=== PATIENT | female | born 1960 | race Caucasian/White ===

== ENCOUNTER 2017-01-04 16:52 | Emergency (ER) | payer OTHER ==
[2017-01-04] MEDS ORDERED: NORMAL SALINE 1000 ML 1,000 ML IV ONE (17:53)
--- NOTE | 2017-01-04 17:56 | ER Document Report ---
ED Medical Screen (RME) - General Chief Complaint: Nausea/Vomiting Stated Complaint: NAUSEA, VOMITING Time Seen by Provider: 01/04/17 17:53 Mode of Arrival: Ambulatory Information source: Patient TRAVEL OUTSIDE OF THE [place] IN LAST 30 DAYS: No - HPI Patient complains to provider of: abd pain/vomiting Onset: Other - pt sent by PCP for further evaluation of L-sided abd pain and vomiting for the past several days. - Related Data Allergies/Adverse Reactions: witch ej [Witch Ej] Allergy (Severe, Verified 01/04/17 17:04) rash latex [Latex] Adverse Reaction (Severe, Verified 01/04/17 17:04) Hives wool Allergy (Severe, Uncoded 01/04/17 17:04) Hives Past Medical History - Social History Frequency of alcohol use: None Drug Abuse: None - Past Medical History Cardiac Medical History: Reports: Hx Hypertension - on meds Denies: Hx Coronary Artery Disease, Hx Heart Attack Pulmonary Medical History: Reports: Hx Asthma - emphysema//inhalers, Hx COPD Denies: Hx Bronchitis, Hx Pneumonia Neurological Medical History: Denies: Hx Cerebrovascular Accident, Hx Seizures Renal/ Medical History: Denies: Hx Peritoneal Dialysis GI Medical History: Reports: Hx Hiatal Hernia. Denies: Hx Hepatitis, Hx Ulcer Musculoskeltal Medical History: Denies Hx Arthritis Infectious Medical History: Denies: Hx Hepatitis Past Surgical History: Denies: Hx Mastectomy, Hx Open Heart Surgery, Hx Pacemaker - Immunizations Hx Diphtheria, Pertussis, Tetanus Vaccination: No Physical Exam - Vital signs Vitals: Temp Pulse Resp BP Pulse Ox 98.3 F 104 H 20 133/74 H 94 01/04/17 17:09 01/04/17 17:09 01/04/17 17:09 01/04/17 17:09 01/04/17 17:09 Course - Vital Signs Vital signs: Temp Pulse Resp BP Pulse Ox 98.3 F 104 H 20 133/74 H 94 01/04/17 17:09 01/04/17 17:09 01/04/17 17:09 01/04/17 17:09 01/04/17 17:09
[2017-01-04 18:19] LABS: ABSOLUTE BASOPHILS # (AUTO) 0.2 10^3/uL (0.0-0.2); ABSOLUTE LYMPHOCYTES (AUTO) 2.3 10^3/uL (0.5-4.7); ABSOLUTE NEUT (AUTO) 8.3 10^3/uL (1.7-8.2); BASOPHILS % (AUTO) 1.3 % (0-2); EOSINOPHILS % (AUTO) 0.2 % (0-6); HEMATOCRIT 41.4 % (36.0-47.0); HEMOGLOBIN 13.9 g/dL (12.0-15.5); HGB HCT DIFFERENCE 0.3; LYMPHOCYTES % (AUTO) 19.6 % (13-45); MEAN CORPUSCULAR HEMOGLOBIN 31.1 pg (27.0-33.4); MEAN CORPUSCULAR HGB CONC 33.6 g/dL (32.0-36.0); MEAN CORPUSCULAR VOLUME 93 fl (80-97); MONOCYTES % (AUTO) 8.4 % (3-13); RED BLOOD COUNT 4.47 10^6/uL (3.72-5.28); RED CELL DISTRIBUTION WIDTH 14.2 % (11.5-14.0); SEGMENTED NEUTROPHILS % (AUTO) 70.5 % (42-78); WHITE BLOOD COUNT 11.8 10^3/uL (4.0-10.5)
[2017-01-04 18:32] LABS: AMORPHOUS SEDIMENT,URINE TRACE /HPF; APPEARANCE,URINE CLOUDY; BILIRUBIN,URINE NEGATIVE (NEGATIVE); GLUCOSE, URINE NEGATIVE (NEGATIVE); KETONES,URINE NEGATIVE (NEGATIVE); LEUKOCYTE ESTERASE,URINE SMALL (NEGATIVE); NITRITE,URINE POSITIVE (NEGATIVE); PROTEIN,URINE 100 mg/dL (NEGATIVE); URINE SPECIFIC GRAVITY 1.011
[2017-01-04 18:34] LABS: ALANINE AMINOTRANSFERASE 24 U/L (9-52); ALBUMIN 4.3 g/dL (3.5-5.0); ALKALINE PHOSPHATASE 91 U/L (38-126); ANION GAP 15 (5-19); ASPARTATE AMINO TRANSFERASE 23 U/L (14-36); BILIRUBIN,DIRECT 0.4 mg/dL (0.0-0.4); BILIRUBIN,TOTAL 1.1 mg/dL (0.2-1.3); BLOOD UREA NITROGEN 9 mg/dL (7-20); CALCIUM 8.9 mg/dL (8.4-10.2); CARBON DIOXIDE 29 mmol/L (22-30); CHLORIDE 95 mmol/L (98-107); CREATININE RESULT 0.66 mg/dL (0.52-1.25); GLUCOSE 147 mg/dL (75-110); LIPASE 59.9 U/L (23-300); SODIUM 138.8 mmol/L (137-145); TOTAL PROTEIN 8.3 g/dL (6.3-8.2)
--- NOTE | 2017-01-04 19:34 | ER Document Report ---
ED GI/ - General Chief Complaint: Nausea/Vomiting Stated Complaint: NAUSEA, VOMITING Time Seen by Provider: 01/04/17 17:53 Mode of Arrival: Ambulatory Notes: Patient is a 56-year-old female that comes emergency department for chief complaint of abdominal pain and vomiting for the past 3 days, she states that abdominal pain began in her left lower abdomen earlier today. She denies any fevers or chills, she has only vomited once today, she states her last bowel movement was normal in appearance. She denies any chest pain, dizziness, flank pain. She has had a colonoscopy recently that showed chest polyps. Past medical history including ostomy bag for urine secondary to bladder cancer, cholecystectomy, hypertension, type 2 diabetes, iron deficiency anemia. Patient denies current pain, states she feels hungry. TRAVEL OUTSIDE OF THE [place] IN LAST 30 DAYS: No - Related Data Allergies/Adverse Reactions: witch ej [Witch Ej] Allergy (Severe, Verified 01/04/17 17:04) rash latex [Latex] Adverse Reaction (Severe, Verified 01/04/17 17:04) Hives wool Allergy (Severe, Uncoded 01/04/17 17:04) Hives Past Medical History - General Information source: Patient - Social History Smoking Status: Current Every Day Smoker Frequency of alcohol use: None Drug Abuse: None Lives with: Family Family History: Reviewed & Not Pertinent - Past Medical History Cardiac Medical History: Reports: Hx Hypertension - on meds Denies: Hx Coronary Artery Disease, Hx Heart Attack Pulmonary Medical History: Reports: Hx Asthma - emphysema//inhalers, Hx COPD Denies: Hx Bronchitis, Hx Pneumonia Neurological Medical History: Denies: Hx Cerebrovascular Accident, Hx Seizures Renal/ Medical History: Denies: Hx Peritoneal Dialysis GI Medical History: Reports: Hx Hiatal Hernia. Denies: Hx Hepatitis, Hx Ulcer Musculoskeltal Medical History: Denies Hx Arthritis Infectious Medical History: Denies: Hx Hepatitis Past Surgical History: Reports: Hx Cholecystectomy, Hx Urinary Tract Surgery - bladder surgery. Denies: Hx Mastectomy, Hx Open Heart Surgery, Hx Pacemaker - Immunizations Hx Diphtheria, Pertussis, Tetanus Vaccination: Yes Review of Systems - Review of Systems Constitutional: No symptoms reported EENT: No symptoms reported Cardiovascular: No symptoms reported Respiratory: No symptoms reported Gastrointestinal: See HPI Genitourinary: No symptoms reported Female Genitourinary: No symptoms reported Musculoskeletal: No symptoms reported Skin: No symptoms reported Hematologic/Lymphatic: No symptoms reported Neurological/Psychological: No symptoms reported Physical Exam - Vital signs Vitals: Temp Pulse Resp BP Pulse Ox 98.3 F 104 H 20 133/74 H 94 01/04/17 17:09 01/04/17 17:09 01/04/17 17:09 01/04/17 17:09 01/04/17 17:09 Interpretation: Normal - General General appearance: Appears well In distress: None - Patient is alert, she is well-appearing, she does not appear to be in any distress - HEENT Head: Normocephalic, Atraumatic Eyes: Normal Pupils: PERRL - Respiratory Respiratory status: No respiratory distress Chest status: Nontender Breath sounds: Normal Chest palpation: Normal - Cardiovascular Rhythm: Regular. No: Tachycardia - Patient is not tachycardic on my exam Heart sounds: Normal auscultation, S1 appreciated, S2 appreciated Murmur: No - Abdominal Distension: No distension Bowel sounds: Normal Tenderness: Tender - There is generalized abdominal tenderness which is mild, slightly more tender in LLQ, no guarding, no rigidity. Bladder ostomy bag noted , has yellow urine in it with no obvious hematuria. Hernia under bladder bag is soft and unremarkable. Organomegaly: No organomegaly - Back Back: Normal, Nontender. No: Tender, CVA tenderness - Extremities General upper extremity: Normal inspection, Nontender, Normal strength, Normal temperature General lower extremity: Normal inspection, Nontender, Normal strength, Normal temperature - Neurological Neuro grossly intact: Yes Cognition: Normal Orientation: AAOx4 Bailey Coma Scale Eye Opening: Spontaneous Bailey Coma Scale Verbal: Oriented Bailey Coma Scale Motor: Obeys Commands Marielena Coma Scale Total: 15 Speech: Normal Motor strength normal: LUE, RUE, LLE, RLE Sensory: Normal - Psychological Associated symptoms: Normal affect, Normal mood - Skin Skin Temperature: Warm Skin Moisture: Dry Skin Color: Normal Course - Re-evaluation Re-evalutation: On my examination patient has mild generalized abdominal tenderness except for mild slightly greater tenderness in the left lower abdomen. There is a hernia in the location of the right lower abdomen associated with her urine bag ostomy , however this is not tender, it is not rigid. Patient is actually well- appearing, sitting up, smiling, talkative, asking to eat. There is mild leukocytosis at 11.8 with no bandemia. No fever, tachycardia, or hypotension. Chemistry reviewed and unremarkable. Urinalysis shows positive nitrates, leukocyte esterase, white blood cells, however this was taken from her urine bag ostomy and is therefore nonspecific. A urine culture sent. Scan reviewed, has incidental finding of 2 cm right renal abnormality which is concerning for malignant mass. No acute abnormalities. The mass was not present last February when she had a CAT scan. I reviewed this with patient. Patient is asking to leave, she states she feels much better and she would like to follow-up with her primary care and then with her urologist in the next few days which she already has an appointment planned for. Patient will be covered with Cipro and Flagyl because of left lower quadrant pain, vomiting, and potential urinary tract infection. I gave patient a copy of her CD and report, discussed that this appears to be concerning for malignancy and must not wait because of potential for metastasis. Patient states understanding and agreement , she states she will return if she worsens. - Vital Signs Vital signs: Temp Pulse Resp BP Pulse Ox 99 F 95 20 118/58 L 95 01/04/17 19:49 01/04/17 22:09 01/04/17 22:09 01/04/17 22:09 01/04/17 22:09 - Laboratory Result Diagrams: 01/04/17 18:12 01/04/17 18:12 Laboratory results interpreted by me: 01/04/17 01/04/17 01/04/17 18:12 18:12 18:12 WBC 11.8 H RDW 14.2 H Absolute Neutrophils 8.3 H Chloride 95 L Glucose 147 H Total Protein 8.3 H Urine Protein 100 H Urine Blood SMALL H Urine Nitrite POSITIVE H Urine Urobilinogen 2.0 H Ur Leukocyte Esterase SMALL H Discharge - Discharge Clinical Impression: Abdominal pain Qualifiers: Abdominal location: generalized Qualified Code(s): R10.84 - Generalized abdominal pain Vomiting Qualifiers: Vomiting type: unspecified Vomiting Intractability: non-intractable Nausea presence: with nausea Qualified Code(s): R11.2 - Nausea with vomiting, unspecified Condition: Stable Disposition: HOME, SELF-CARE Additional Instructions: Take the cipro and flagyl given due to possible diverticulitis and possible UTI. We have a urine culture pending. Take the phenergan if needed for nausea. Your CAT scan imaging does show that the hernia which you already were aware of but also shows a new kidney mass which needs a close follow-up. Call your primary care provider tomorrow in regards to this, your urology referral this week is probably appropriate for this. Return to the ED if you worsen in any way including returned or worsening abdominal pain, uncontrolled vomiting, fever, or any other concerning symptoms. Prescriptions: Ciprofloxacin HCl [Cipro 500 mg Tablet] 500 mg PO BID #14 tablet Metronidazole [Flagyl 500 mg Tablet] 500 mg PO TID #21 tablet Promethazine HCl [Phenergan 25 mg Tablet] 1 tab PO Q6H PRN #15 tablet PRN Reason:
--- NOTE | 2017-01-04 19:59 | RADIOLOGY REPORT (SQ) ---
EXAM DESCRIPTION: CT ABD/PELVIS WITH IV ONLY COMPLETED DATE/TIME: 01/04/2017 7:10 pm REASON FOR STUDY: abd pain/vomiting COMPARISON: 09/17/2015 TECHNIQUE: CT scan of the abdomen and pelvis performed using helical scanning technique with dynamic intravenous contrast injection. No oral contrast. Images reviewed with lung, soft tissue, and bone windows. Reconstructed coronal and sagittal MPR images reviewed. Delayed images for evaluation of the urinary system also acquired. All images stored on PACS. All CT scanners at this facility use dose modulation, iterative reconstruction, and/or weight based d osing when appropriate to reduce radiation dose to as low as reasonably achievable (ALARA). [facility]: Dose Right [facility]: CareDose [facility]: Dose Right [facility]: Teradose 4D [facility]: [employer] [facility] CONTRAST TYPE AND DOSE: contrast/concentration: Isovue 370.00 mg/ml; Total Contrast Delivered: 96.0 ml; Total Saline Delivered: 45.0 ml RENAL FUNCTION: GFR > 60. RADIATION DOSE: Up-to-date CT equipment and radiation dose reduction techniques were employed. CTDIv ol: 16.8 - 19.3 mGy. DLP: 1973 mGy-cm.. LIMITATIONS: None. FINDINGS: LOWER CHEST: No significant findings. No nodules or infiltrates. LIVER: Normal size. No masses. No dilated ducts. SPLEEN: Normal size. No focal lesions. PANCREAS: No masses. No significant calcifications. No adjacent inflammation or peripancreatic fluid collections. Pancreatic duct not dilated. GALLBLADDER: Surgically absent. ADRENAL GLANDS: No significant masses or asymmetry. RIGHT KIDNEY AND URETER: New 2.6 cm solid mass in the mid right kidney not seen on the previous CT. No significant calcifications. No hydronephrosis or hydroureter. LEFT KIDNEY AND URETER: No solid masses. No significant calcifications. No hydronephrosis or hydr oureter. AORTA AND VESSELS: No aneurysm. No dissection. Renal arteries, SMA, celiac without stenosis. RETROPERITONEUM: No retroperitoneal adenopathy, hemorrhage or masses. BOWEL AND PERITONEAL CAVITY: Right lower quadrant ostomy. Bowel is herniated the ostomy site without obstruction. APPENDIX: Not visualized. PELVIS: Status post cystectomy. ABDOMINAL WALL: Ostomy. Herniated 9 obstructive bowel BONES: No significant or acute findings. OTHER: No other significant finding. IMPRESSION: Status post cystectomy with right lower quadrant ostomy. Contains nonobstructed bowel. New 2.6 cm solid mass in the right kidney. Suspicious for primary or metastatic lesion. TECHNICAL DOCUMENTATION: JOB ID: [id number] Quality ID # [id number]: Final reports with documentation of one or more dose reduction techniques (e.g., Au tomated exposure control, adjustment of the mA and/or kV according to patient size, use of iterative reconstruction technique) 2010 [employer]- All Rights Reserved
[2017-01-04] MEDS ORDERED: ONDANSETRON ODT 4 MG TAB (6 TAB/DSPK) PO PRN (20:10)
[2017-01-04] MEDS ORDERED: CIPROFLOXACIN HCL 500 MG TABLET PO ONE (20:10)
[2017-01-04] MEDS ORDERED: METRONIDAZOLE 500 MG TABLET PO ONE (20:10)
[2017-01-04] MEDS ORDERED: ONDANSETRON 4 MG TAB.RAPDIS PO ONE (21:11)
[2017-01-04 22:10] VITALS: BP 118/58
== END 2017-01-04 22:08 | disposition home or self-care (01) ==
LOC: ER 16:52
DX: R11.2 Nausea with vomiting, unspecified (principal); R93.421 Abnormal radiologic findings on diagnostic imaging of right kidney; C67.9 Malignant neoplasm of bladder, unspecified; R10.84 Generalized abdominal pain; D72.829 Elevated white blood cell count, unspecified; K46.9 Unspecified abdominal hernia without obstruction or gangrene; I10 Essential (primary) hypertension; E11.9 Type 2 diabetes mellitus without complications; J44.9 Chronic obstructive pulmonary disease, unspecified; F17.200 Nicotine dependence, unspecified, uncomplicated; Z91.048 Other nonmedicinal substance allergy status; Z93.50 Unspecified cystostomy status
CPT/HCPCS: 99284; 96360; 36415; 83690; 85025; 80053; 81001; 74177; S0119; J7030

== ENCOUNTER → 2018-03-29 | Outpatient (CLI) | payer OTHER ==
--- NOTE | 2018-03-29 14:58 | RADIOLOGY REPORT (SQ) ---
EXAM DESCRIPTION: CT CHEST WITH COMPLETED DATE/TIME: 03/29/2018 2:44 pm REASON FOR STUDY: BLADDER CA (C67.1) C67.1 MALIGNANT NEOPLASM OF DOME OF BLADDER COMPARISON: 09/17/2015 TECHNIQUE: CT scan of the chest performed using helical scanning technique with dynamic intravenous contrast injection. Images reviewed with lung, soft tissue and bone windows. Reconstructed coronal and sagittal MPR and MIP images reviewed. All images stored on PACS. All CT scanners at this facility use dose modulation, iterative reconstruction, and/or weight based d osing when appropriate to reduce radiation dose to as low as reasonably achievable (ALARA). [facility]: Dose Right [facility]: CareDose [facility]: Dose Right [facility]: Teradose 4D [facility]: [employer]Peer ([employer]) CONTRAST TYPE AND DOSE: Not available at time of dictation. Isovue 370- low osmolar. RENAL FUNCTION: Creatinine 1.0 RADIATION DOSE: . LIMITATIONS: None. FINDINGS: LUNGS AND PLEURA: No opacities, nodules, masses. No pneumothorax. No effusions. HILAR AND MEDIASTINAL STRUCTURES: No identified masses or abnormal nodes. HEART AND VASCULAR STRUCTURES: No aneurysm or dissection. No central pulmonary emboli. No pericardi al effusion. HARDWARE: None in the chest. UPPER ABDOMEN: No significant findings. Limited exam. THYROID AND OTHER SOFT TISSUES: No masses. No adenopathy. BONES: No significant finding. OTHER: No other significant finding. IMPRESSION: NORMAL CT OF THE CHEST WITH IV CONTRAST. TECHNICAL DOCUMENTATION: JOB ID: [id number] Quality ID # [id number]: Final reports with documentation of one or more dose reduction techniques (e.g., Au tomated exposure control, adjustment of the mA and/or kV according to patient size, use of iterative reconstruction technique) 2010 [employer]- All Rights Reserved Reading location - IP/workstation name: [email or web address] CORPORATIONPALLAVI
--- NOTE | 2018-03-29 15:02 | RADIOLOGY REPORT (SQ) ---
EXAM DESCRIPTION: CT ABD/PELVIS WITH IV ONLY COMPLETED DATE/TIME: 03/29/2018 2:44 pm REASON FOR STUDY: BLADDER CA (C67.1) C67.1 MALIGNANT NEOPLASM OF DOME OF BLADDER COMPARISON: 01/04/2017 TECHNIQUE: CT scan of the abdomen and pelvis performed using helical scanning technique with dynamic intravenous contrast injection. No oral contrast. Images reviewed with lung, soft tissue, and bone windows. Reconstructed coronal and sagittal MPR images reviewed. Delayed images for evaluation of the urinary system also acquired. All images stored on PACS. All CT scanners at this facility use dose modulation, iterative reconstruction, and/or weight based d osing when appropriate to reduce radiation dose to as low as reasonably achievable (ALARA). [facility]: Dose Right [facility]: CareDose [facility]: Dose Right [facility]: Teradose 4D [facility]: [employer] CONTRAST TYPE AND DOSE: Not available at time of dictation Isovue 370- low osmolar. RENAL FUNCTION: Creatinine 1.0 RADIATION DOSE: CT Rad equipment meets quality standard of care and radiation dose reduction techniq ues were employed. CTDIvol: 9.0 - 14.3 mGy. DLP: 1860 mGy-cm.. LIMITATIONS: None. FINDINGS: LOWER CHEST: No significant findings. No nodules or infiltrates. LIVER: Normal size. No masses. No dilated ducts. SPLEEN: Normal size. No focal lesions. PANCREAS: No masses. No significant calcifications. No adjacent inflammation or peripancreatic fluid collections. Pancreatic duct not dilated. GALLBLADDER: Surgically absent. ADRENAL GLANDS: No significant masses or asymmetry. RIGHT KIDNEY AND URETER: Solid mass this guide in 2017 is no longer identified. There is some cortic al scarring at the site. No significant calcifications. No hydronephrosis or hydroureter. LEFT KIDNEY AND URETER: No solid masses. No significant calcifications. No hydronephrosis or hydr oureter. AORTA AND VESSELS: No aneurysm. No dissection. Renal arteries, SMA, celiac without stenosis. RETROPERITONEUM: No retroperitoneal adenopathy, hemorrhage or masses. BOWEL AND PERITONEAL CAVITY: No masses or inflammatory changes. No free fluid or peritoneal masses. There is an ostomy site in the right lower quadrant. APPENDIX: Not visualized. PELVIS: Prior cystectomy. ABDOMINAL WALL: No masses. No hernias. BONES: No significant or acute findings. OTHER: No other significant finding. IMPRESSION: Postsurgical changes. No evidence of intra-abdominal metastatic disease. The solid david earing right renal mass previously noted is no longer identified. TECHNICAL DOCUMENTATION: JOB ID: [id number] Quality ID # [id number]: Final reports with documentation of one or more dose reduction techniques (e.g., Au tomated exposure control, adjustment of the mA and/or kV according to patient size, use of iterative reconstruction technique) 2010 [employer]- All Rights Reserved Reading location - IP/workstation name: [email or web address]
== END ==
LOC: RAD 14:09
PROVIDERS: ATTEND Internal Medicine Medical Oncology
DX: C67.1 Malignant neoplasm of dome of bladder (principal)
CPT/HCPCS: 71260; 74177; 82565

== ENCOUNTER 2019-02-21 14:49 | Inpatient (IN) | payer OTHER ==
--- NOTE | 2019-02-21 16:17 | ER Document Report ---
ED Medical Screen (RME) - General Chief Complaint: Shortness Of Breath Stated Complaint: SHORT OF BREATH, CHEST PAIN Time Seen by Provider: 02/21/19 15:58 Primary Care Provider: RITA LANG MD [Primary Care Provider] - Follow up as needed Mode of Arrival: Ambulatory Information source: Patient Notes: Patient is a 59-year-old female presenting to the emergency department chief complaint of chest pain shortness of breath. 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 At the time of my evaluation she has severe nausea and states the pain is getting worse. She was given aspirin 325 mg by EMS. She has not had any other medications other than her antihypertensives this morning. She is a smoker. Patient was upgraded from a 3H to an JONI 2 due to ongoing chest pain with sravani rtness of breath and nausea. Charge nurse was made aware. Exam: Heart sounds S1-S2 present with no ectopy noted. Patient is alert, answering all questions appropriately. Lung sounds clear and equal bilaterally. I have greeted and performed a rapid initial assessment of this patient. A comprehensive ED assessment and evaluation of the patient, analysis of test results and completion of the medical decision making process will be conducted by additional ED providers. I have specifically instructed the patient or family members with the patient to immediately return to any nursing staff shou ld anything change in the patient's condition or with their chief complaint. This medical record was dictated with voice recognizing software. There may be grammatical, syntax errors that are unintended. TRAVEL OUTSIDE OF THE [place] IN LAST 30 DAYS: No - Related Data Allergies/Adverse Reactions: witch ej [Witch Ej] Allergy (Severe, Verified 01/04/17 17:04) rash latex [Latex] Adverse Reaction (Severe, Verified 01/04/17 17:04) Hives wool Allergy (Severe, Uncoded 01/04/17 17:04) Hives Past Medical History - Past Medical History Cardiac Medical History: Reports: Hx Hypertension - on meds Denies: Hx Coronary Artery Disease, Hx Heart Attack Pulmonary Medical History: Reports: Hx Asthma - emphysema//inhalers, Hx COPD Denies: Hx Bronchitis, Hx Pneumonia Neurological Medical History: Denies: Hx Cerebrovascular Accident, Hx Seizures Renal/ Medical History: Denies: Hx Peritoneal Dialysis GI Medical History: Reports: Hx Hiatal Hernia. Denies: Hx Hepatitis, Hx Ulcer Musculoskeltal Medical History: Denies Hx Arthritis Infectious Medical History: Denies: Hx Hepatitis Past Surgical History: Reports: Hx Cholecystectomy, Hx Urinary Tract Surgery - bladder surgery. Denies: Hx Mastectomy, Hx Open Heart Surgery, Hx Pacemaker - Immunizations Hx Diphtheria, Pertussis, Tetanus Vaccination: Yes Physical Exam - Vital signs Vitals: Temp Pulse Resp BP Pulse Ox 98.1 F 100 16 100/58 L 92 02/21/19 15:03 02/21/19 15:03 02/21/19 15:03 02/21/19 15:03 02/21/19 15:03 Course - Vital Signs Vital signs: Temp Pulse Resp BP Pulse Ox 98.1 F 100 16 106/57 L 92 02/21/19 15:03 02/21/19 15:03 02/21/19 15:03 02/21/19 15:07 02/21/19 15:03 Doctor's Discharge - Discharge Referrals: RITA LANG MD [Primary Care Provider] - Follow up as needed
[2019-02-21 16:52] LABS: ABSOLUTE EOSINOPHILS # (AUTO) 0.1 10^3/uL (0.0-0.6); ABSOLUTE LYMPHOCYTES (AUTO) 3.4 10^3/uL (0.5-4.7); ABSOLUTE MONOCYTES (AUTO) 0.6 10^3/uL (0.1-1.4); BASOPHILS % (AUTO) 0.2 % (0-2); EOSINOPHILS % (AUTO) 0.5 % (0-6); HEMATOCRIT 35.8 % (36.0-47.0); HEMOGLOBIN 11.9 g/dL (12.0-15.5); LYMPHOCYTES % (AUTO) 26.1 % (13-45); MEAN CORPUSCULAR HEMOGLOBIN 29.3 pg (27.0-33.4); MEAN CORPUSCULAR HGB CONC 33.2 g/dL (32.0-36.0); MEAN CORPUSCULAR VOLUME 88 fl (80-97); MONOCYTES % (AUTO) 4.7 % (3-13); PLATELET COUNT 281 10^3/uL (150-450); RED BLOOD COUNT 4.05 10^6/uL (3.72-5.28); RED CELL DISTRIBUTION WIDTH 14.8 % (11.5-14.0); SEGMENTED NEUTROPHILS % (AUTO) 68.5 % (42-78); TOTAL CELLS COUNTED % (AUTO) 100 %; WHITE BLOOD COUNT 13.1 10^3/uL (4.0-10.5)
[2019-02-21] MEDS ORDERED: NITROGLYCERIN 0.4 MG/TAB 25 TAB/BOTTLE SL PRN ×2 (16:58→18:42)
[2019-02-21] MEDS ORDERED: IPRATROPIUM/ALBUTEROL 0.5-2.5 MG/3 ML AMPUL NEB ONE (16:58)
--- NOTE | 2019-02-21 17:00 | ER Document Report ---
ED General - General Chief Complaint: Shortness Of Breath Stated Complaint: SHORT OF BREATH, CHEST PAIN Time Seen by Provider: 02/21/19 15:58 Primary Care Provider: RITA LANG MD [Primary Care Provider] - Follow up as needed Mode of Arrival: Ambulatory Notes: This is a 59-year-old female with diabetes obesity hypertension and hyperlipidemia who presents with chest pressure and shortness of breath. 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 It worsened on exertion. She went to her doctor's office and they gave her an aspirin and told her to come to the emergency department. Is been present now for 6 hours and is slightly improved laying in bed in the ED but is been constant for 6 hours. No cough no fever. History of COPD/emphysema. Had a cath 10 years ago, that she says was clean. TRAVEL OUTSIDE OF THE [place] IN LAST 30 DAYS: No - Related Data Allergies/Adverse Reactions: witch ej [Witch Ej] Allergy (Severe, Verified 01/04/17 17:04) rash latex [Latex] Adverse Reaction (Severe, Verified 01/04/17 17:04) Hives wool Allergy (Severe, Uncoded 01/04/17 17:04) Hives Past Medical History - General Information source: Patient - Social History Smoking Status: Current Every Day Smoker Chew tobacco use (# tins/day): No Smoking Education Provided: Yes - The patient ED visit today was directly related to their abuse of tobacco. Frequency of alcohol use: None Drug Abuse: None Family History: Reviewed & Not Pertinent Patient has suicidal ideation: No Patient has homicidal ideation: No - Past Medical History Cardiac Medical History: Reports: Hx Hypertension - on meds Denies: Hx Coronary Artery Disease, Hx Heart Attack Pulmonary Medical History: Reports: Hx Asthma - emphysema//inhalers, Hx COPD Denies: Hx Bronchitis, Hx Pneumonia Neurological Medical History: Denies: Hx Cerebrovascular Accident, Hx Seizures Renal/ Medical History: Denies: Hx Peritoneal Dialysis GI Medical History: Reports: Hx Hiatal Hernia. Denies: Hx Hepatitis, Hx Ulcer Musculoskeletal Medical History: Denies Hx Arthritis Infectious Medical History: Denies: Hx Hepatitis Past Surgical History: Reports: Hx Cholecystectomy, Hx Urinary Tract Surgery - bladder surgery. Denies: Hx Mastectomy, Hx Open Heart Surgery, Hx Pacemaker - Immunizations Hx Diphtheria, Pertussis, Tetanus Vaccination: Yes Review of Systems - Review of Systems Notes: REVIEW OF SYSTEMS GEN: Denies fever, chills, weight loss ENT: Denies sore throat, nasal discharge, ear pain EYES: Denies blurry vision, eye pain, discharge CV: Pain RESP: Shortness of breath GI: Denies abdominal pain, nausea, vomiting, diarrhea MSK: Denies joint pain/swelling, edema, SKIN: Denies rash, skin lesions LYMPH: Denies swollen glands/lymph nodes NEURO: Denies headache, focal weakness or numbness, dizziness PSYCH: Denies depression, suicidal or homicidal ideation PHYSICAL EXAMINATION General: Obese. No acute distress, well-nourished Head: Atraumatic, normocephalic ENT: Mouth normal, oropharynx moist, no exudates or tonsillar enlargement Eyes: Conjunctiva normal, pupils equal, lids normal Neck: No JVD, supple, no guarding CVS: Normal rate, regular rhythm, no murmurs Resp: No resp distress, equal and normal breath sounds bilaterally GI: Nondistended, soft, no tenderness to palpation, no rebound or guarding Ext: No deformities, no edema, normal range of motion in upper and lower ext Back: No CVA or midline TTP Skin: No rash, warm Lymphatic: No lymphadeopathy noted Neuro: Awake, alert. Face symmetric. GCS 15. Physical Exam - Vital signs Vitals: Temp Pulse Resp BP Pulse Ox 98.1 F 100 16 100/58 L 92 02/21/19 15:03 02/21/19 15:03 02/21/19 15:03 02/21/19 15:03 02/21/19 15:03 Course - Re-evaluation Re-evalutation: 02/21/19 17:42 Ischemic sounding chest pain with good story. Physical exam shows only wheezing. Multiple resections for ACS. Heart score 5. Chest x-ray negative. EKG is normal/unchanged. Troponin is mildly detectable. Patient will be admitted for stress testing. Discussed with Dr. Du. - Vital Signs Vital signs: Temp Pulse Resp BP Pulse Ox 98.1 F 100 16 110/60 92 02/21/19 15:03 02/21/19 15:03 02/21/19 15:03 02/21/19 16:19 02/21/19 15:03 - Laboratory Result Diagrams: 02/21/19 16:39 02/21/19 16:39 Laboratory results interpreted by me: 02/21/19 02/21/19 16:39 16:39 WBC 13.1 H Hgb 11.9 L Hct 35.8 L RDW 14.8 H Absolute Neuts (auto) 9.0 H Est GFR (MDRD) Non-Af 56 L Glucose 128 H - Diagnostic Test Radiology reviewed: Image reviewed, Reports reviewed - EKG Interpretation by Me EKG shows normal: Sinus rhythm Rate: Normal When compared to previous EKG there are: No significant change - Sickly no changes in ST segments or T waves Discharge - Discharge Clinical Impression: Chest pain, unspecified Qualifiers: Chest pain type: other chest pain Qualified Code(s): R07.89 - Other chest pain; R07.8 - Other chest pain Condition: Good Disposition: ADMITTED OBSERVATION Admitting Provider: Frances (Hospitalist) Unit Admitted: Telemetry Referrals: RITA LANG MD [Primary Care Provider] - Follow up as needed
[2019-02-21 17:13] LABS: ALKALINE PHOSPHATASE 80 U/L (38-126); ANION GAP 9 (5-19); ASPARTATE AMINO TRANSFERASE 16 U/L (14-36); BILIRUBIN,DIRECT 0.1 mg/dL (0.0-0.4); BILIRUBIN,TOTAL 0.5 mg/dL (0.2-1.3); BLOOD UREA NITROGEN 18 mg/dL (7-20); CALCIUM 9.8 mg/dL (8.4-10.2); CARBON DIOXIDE 28 mmol/L (22-30); CHLORIDE 101 mmol/L (98-107); CREATINE KINASE 48 U/L (30-135); GLUCOSE 128 mg/dL (75-110); POTASSIUM 4.8 mmol/L (3.6-5.0); TOTAL PROTEIN 7.8 g/dL (6.3-8.2)
--- NOTE | 2019-02-21 17:54 | RADIOLOGY REPORT (SQ) ---
EXAM DESCRIPTION: CHEST SINGLE VIEW COMPLETED DATE/TIME: 02/21/2019 4:57 pm REASON FOR STUDY: chest pain COMPARISON: 10/02/2009 EXAM PARAMETERS: NUMBER OF VIEWS: One view. TECHNIQUE: Single frontal radiographic view of the chest acquired. RADIATION DOSE: NA LIMITATIONS: None. FINDINGS: LUNGS AND PLEURA: No opacities, masses or pneumothorax. No pleural effusion. MEDIASTINUM AND HILAR STRUCTURES: No masses. Contour normal. HEART AND VASCULAR STRUCTURES: Heart normal in size. Normal vasculature. BONES: No acute findings. HARDWARE: None in the chest. OTHER: No other significant finding. IMPRESSION: NO ACUTE RADIOGRAPHIC FINDING IN THE CHEST. TECHNICAL DOCUMENTATION: JOB ID: [id number] [email or web address]- All Rights Reserved Reading location - IP/workstation name: [email or web address]
[2019-02-21] MEDS ORDERED: NORMAL SALINE 1000 ML 1,000 ML IV PRN (17:57)
[2019-02-21] MEDS ORDERED: LORAZEPAM INJ 2 MG/1 ML VIAL IV PRN (18:41)
[2019-02-21] MEDS ORDERED: DEXTROSE 40% GEL 15 GM TUBE PO PRN ×2 (18:45)
[2019-02-21] MEDS ORDERED: IPRATROPIUM/ALBUTEROL 0.5-2.5 MG/3 ML AMPUL NEB PRN (18:45)
[2019-02-21] MEDS ORDERED: DEXTROSE 50%-WATER 25 GM/50 ML DISP.SYRIN IV PRN ×2 (18:45)
[2019-02-21] MEDS ORDERED: GLUCAGON,HUMAN RECOMB 1 MG INJ IM PRN (18:45)
[2019-02-21] MEDS ORDERED: MORPHINE SULFATE 10 MG/ML INJ IV PRN (18:46)
--- NOTE | 2019-02-21 19:27 | PDOC H&P ---
History of Present Illness Admission Date/PCP: 02/21/19 18:23 RITA LANG MD Patient complains of: chest pain History of Present Illness: HAY OLSEN is a 59 year old female with a past medical history of hypertension, diabetes medius type II, hyperlipidemia, chronic heavy cigarette smoking, history of bladder cancer and COPD not on home O2 who presented with chest pain. 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 She said the pain was a combination of pressure-like and sharp in character, 5/10 intensity. She says that it did temporarily radiated through the intrascapular region. She denies shortness of breath. She was given nitro in the ER and had decent relief from the nitro. Upon encounter, she appears comfortable. She says her chest pain is minimal at 1/10 at the moment. She is saturating at 91 to 92% on room air. She says that she was supposed to be on home oxygen but she refused as she decided to continue smoking. Past Medical History Cardiac Medical History: Reports: Hyperlipidema, Hypertension - on meds Denies: Coronary Artery Disease, Myocardial Infarction Pulmonary Medical History: Reports: Asthma - emphysema//inhalers, Chronic Obst ructive Pulmonary Disease (COPD) Denies: Bronchitis, Pneumonia Neurological Medical History: Denies: Seizures Endocrine Medical History: Reports: Diabetes Mellitus Type 2 GI Medical History: Reports: Hiatal Hernia Denies: Hepatitis Musculoskeltal Medical History: Denies: Arthritis Hematology: Reports: Anemia - hx of Denies: Sickle Cell Disease Past Surgical History Past Surgical History: Reports: Cholecystectomy Denies: Amputation, Mastectomy, Pacemaker Social History Smoking Status: Current Every Day Smoker Family History Family History: Reviewed & Not Pertinent Parental Family History Reviewed: Yes - No premature CAD Children Family History Reviewed: No Sibling(s) Family History Reviewed.: No Medication/Allergy Allergies/Adverse Reactions: witch ej [Witch Ej] Allergy (Severe, Verified 01/04/17 17:04) rash latex [Latex] Adverse Reaction (Severe, Verified 01/04/17 17:04) Hives wool Allergy (Severe, Uncoded 01/04/17 17:04) Hives Review of Systems All systems: reviewed and no additional remarkable complaints except as stated - As mentioned in HPI Physical Exam Vital Signs: Temp Pulse Resp BP Pulse Ox 98.1 F 100 16 110/60 92 02/21/19 15:03 02/21/19 15:03 02/21/19 15:03 02/21/19 16:19 02/21/19 15:03 Intake & Output 02/20/19 02/21/19 02/22/19 06:59 06:59 06:59 Weight 191 lb 12.835 oz General appearance: PRESENT: no acute distress, well-developed, well-nourished Head exam: PRESENT: atraumatic, normocephalic Eye exam: PRESENT: conjunctiva pink, EOMI, PERRLA. ABSENT: scleral icterus Ear exam: PRESENT: normal external ear exam Mouth exam: PRESENT: moist, tongue midline Neck exam: ABSENT: carotid bruit, JVD, lymphadenopathy, thyromegaly Respiratory exam: PRESENT: clear to auscultation eligio. ABSENT: rales, rhonchi, wheezes Cardiovascular exam: PRESENT: RRR. ABSENT: diastolic murmur, rubs, systolic murmur Pulses: PRESENT: normal dorsalis pedis pul GI/Abdominal exam: PRESENT: normal bowel sounds, soft. ABSENT: distended, guarding, mass, organolmegaly, rebound, tenderness Rectal exam: PRESENT: deferred Extremities exam: PRESENT: full ROM. ABSENT: calf tenderness, clubbing, pedal edema Neurological exam: PRESENT: alert, awake, oriented to person, oriented to place, oriented to time, oriented to situation, CN II-XII grossly intact. ABSENT: motor sensory deficit Results Laboratory Results: 02/21/19 16:39 02/21/19 16:39 02/21/19 02/21/19 16:39 16:39 WBC 13.1 H RBC 4.05 Hgb 11.9 L Hct 35.8 L MCV 88 MCH 29.3 MCHC 33.2 RDW 14.8 H Plt Count 281 Seg Neutrophils % 68.5 Sodium 138.3 Potassium 4.8 Chloride 101 Carbon Dioxide 28 Anion Gap 9 BUN 18 Creatinine 1.01 Est GFR ( Amer) > 60 Glucose 128 H Calcium 9.8 Total Bilirubin 0.5 AST 16 Alkaline Phosphatase 80 Total Protein 7.8 Albumin 4.0 02/21/19 02/21/19 16:39 16:39 Creatine Kinase 48 Troponin I 0.094 Impressions: Chest X-Ray 02/21/19 16:15 IMPRESSION: NO ACUTE RADIOGRAPHIC FINDING IN THE CHEST. Assessment and Plan - Diagnosis (1) Atypical chest pain Is this a current diagnosis for this admission?: Yes Plan: Troponin is slightly elevated 0.09. EKG does not show acute changes. We will continue to cycle troponins and EKGs. She did say the pain radiated to the interscapular region earlier. Blood pressures are normal. Will pursue CTA to rule out dissection. On chest palpation, she does have chest wall tenderness on the right anterior chest area. (2) Hypertension Is this a current diagnosis for this admission?: Yes (3) Diabetes mellitus type 2 in obese Is this a current diagnosis for this admission?: Yes (4) Tobacco abuse Is this a current diagnosis for this admission?: Yes (5) History of bladder cancer Is this a current diagnosis for this admission?: Yes
--- NOTE | 2019-02-21 19:28 | ADVANCED CARE ---
- Diagnosis (1) Atypical chest pain Diagnosis Current: Yes (2) Diabetes mellitus type 2 in obese Diagnosis Current: Yes (3) History of bladder cancer Diagnosis Current: Yes (4) Hypertension Diagnosis Current: Yes (5) Tobacco abuse Diagnosis Current: Yes Resuscitation Status: Full Code Discussion: Discussed with patient with daughter on the bedside. She says she is a full code and prefers chest compressions, defibrillation or mechanical ventilation if the need arises. She does express that she does not want to be on long-term ventilation. She says that her daughter, Erin Baptiste is her his surrogate medical decision maker.
--- NOTE | 2019-02-21 19:40 | RADIOLOGY REPORT (SQ) ---
EXAM DESCRIPTION: CTA CHEST COMPLETED DATE/TIME: 02/21/2019 7:24 pm REASON FOR STUDY: r/o dissection, PE COMPARISON: None. TECHNIQUE: CT scan of the chest performed using helical scanning technique with dynamic intravenous contrast injection. Images reviewed with lung, soft tissue and bone windows. Reconstructed coronal and sagittal MPR images reviewed. Additional 3 dimensional post-processing performed to develop Maximal Intensity Projection images (MS P). All images stored on PACS. All CT scanners at this facility use dose modulation, iterative reconstruction, and/or weight based d osing when appropriate to reduce radiation dose to as low as reasonably achievable (ALARA). [facility]: Dose Right [facility]: CareDose [facility]: Dose Right [facility]: Teradose 4D [facility]: Ecelles Carson CONTRAST TYPE AND DOSE: contrast/concentration: Isovue 350.00 mg/ml; Total Contrast Delivered: 63.0 ml; Total Saline Delivered: 72.8 ml Contrast bolus adequate for pulmonary arteries and aorta. RENAL FUNCTION: BUN 10 creatinine 1 RADIATION DOSE: CT Rad equipment meets quality standard of care and radiation dose reduction techniq ues were employed. CTDIvol: 13.2 - 17.4 mGy. DLP: 671 mGy-cm. . LIMITATIONS: None. FINDINGS: LUNGS AND PLEURA: No masses, infiltrates, or pneumothorax. No pleural effusions or pleura l calcifications. AORTA AND GREAT VESSELS: No aneurysm. No dissection. HEART: No pericardial effusion. No significant coronary artery calcifications. PULMONARY ARTERIES: No emboli visualized in the main pulmonary arteries or the segmental branches. HILAR AND MEDIASTINAL STRUCTURES: No identified masses or abnormal nodes. HARDWARE: None in the chest. UPPER ABDOMEN: No significant findings. Limited exam. THYROID AND OTHER SOFT TISSUES: No masses. No adenopathy. BONES: No acute or significant finding. 3D MIPS: Confirm above findings. OTHER: No other significant finding. IMPRESSION: There is no aortic aneurysm or dissection. There is no pulmonary embolus. COMMENT: Quality ID # [id number]: Final reports with documentation of one or more dose reduction techniques (e.g., Automated exposure control, adjustment of the mA and/or kV according to patient size, use of iterative reconstruction technique) TECHNICAL DOCUMENTATION: JOB ID: [id number] [email or web address] All Rights Reserved Reading location - IP/workstation name: [email or web address]
--- NOTE | 2019-02-21 20:55 | EKG REPORT ---
SEVERITY:- BORDERLINE ECG - SINUS TACHYCARDIA BORDERLINE RIGHT AXIS DEVIATION BORDERLINE T ABNORMALITIES, ANT-LAT LEADS : Confirmed by: Valeri Berg MD 21-Feb-2019 20:54:40
[2019-02-21] MEDS ORDERED: HEPARIN SOD (PORCINE) 5,000 UNIT/ML 1 ML VIAL SUBCUT SCH (22:00)
[2019-02-21] MEDS: ATORVASTATIN CALCIUM 40 MG TABLET PO SCH (22:44)
[2019-02-21] MEDS: INSULIN LISPRO 100 UNIT/ML 3 ML VIAL SUBCUT SCH (22:44)
[2019-02-21] MEDS ORDERED: ENOXAPARIN SODIUM INJ 100 MG/1 ML DISP.SYRIN SUBCUT ONE (23:45)
[2019-02-22 05:59] LABS: ANION GAP 9 (5-19); BLOOD UREA NITROGEN 15 mg/dL (7-20); CALCIUM 9.2 mg/dL (8.4-10.2); CARBON DIOXIDE 27 mmol/L (22-30); CHLORIDE 104 mmol/L (98-107); GLUCOSE 128 mg/dL (75-110); POTASSIUM 4.8 mmol/L (3.6-5.0)
[2019-02-22 06:57] LABS: ABSOLUTE EOSINOPHILS # (AUTO) 0.1 10^3/uL (0.0-0.6); ABSOLUTE LYMPHOCYTES (AUTO) 2.1 10^3/uL (0.5-4.7); ABSOLUTE MONOCYTES (AUTO) 0.7 10^3/uL (0.1-1.4); ABSOLUTE NEUT (AUTO) 7.8 10^3/uL (1.7-8.2); BASOPHILS % (AUTO) 0.2 % (0-2); EOSINOPHILS % (AUTO) 0.5 % (0-6); HEMATOCRIT 33.6 % (36.0-47.0); LYMPHOCYTES % (AUTO) 19.4 % (13-45); MEAN CORPUSCULAR HEMOGLOBIN 29.1 pg (27.0-33.4); MEAN CORPUSCULAR HGB CONC 32.7 g/dL (32.0-36.0); MEAN CORPUSCULAR VOLUME 89 fl (80-97); MONOCYTES % (AUTO) 6.3 % (3-13); PLATELET COUNT 227 10^3/uL (150-450); RED BLOOD COUNT 3.78 10^6/uL (3.72-5.28); RED CELL DISTRIBUTION WIDTH 14.9 % (11.5-14.0); SEGMENTED NEUTROPHILS % (AUTO) 73.6 % (42-78); TOTAL CELLS COUNTED % (AUTO) 100 %; WHITE BLOOD COUNT 10.7 10^3/uL (4.0-10.5)
[2019-02-22 08:18] LABS: APPEARANCE,URINE SLIGHTLY-CLOUDY; BILIRUBIN,URINE NEGATIVE (NEGATIVE); COLOR,URINE YELLOW; GLUCOSE, URINE NEGATIVE (NEGATIVE); KETONES,URINE NEGATIVE (NEGATIVE); LEUKOCYTE ESTERASE,URINE MODERATE (NEGATIVE); NITRITE,URINE NEGATIVE (NEGATIVE); PROTEIN,URINE NEGATIVE (NEGATIVE); URINE SPECIFIC GRAVITY 1.013; UROBILINOGEN,URINE NEGATIVE mg/dL (<2.0)
[2019-02-22] MEDS: INSULIN LISPRO 100 UNIT/ML 3 ML VIAL SUBCUT SCH ×4 (09:12→21:26)
[2019-02-22] MEDS: METOPROLOL TARTRATE 25 MG TABLET PO SCH ×2 (09:15→21:25)
--- NOTE | 2019-02-22 09:25 | EKG REPORT ---
SEVERITY:- BORDERLINE ECG - SINUS RHYTHM BORDERLINE T ABNORMALITIES, ANT-LAT LEADS : Confirmed by: Valeri Berg MD 22-Feb-2019 09:24:30
--- NOTE | 2019-02-22 09:25 | EKG REPORT ---
SEVERITY:- BORDERLINE ECG - SINUS RHYTHM BORDERLINE T ABNORMALITIES, ANT-LAT LEADS : Confirmed by: Valeri Berg MD 22-Feb-2019 09:24:34
[2019-02-22] MEDS ORDERED: ENOXAPARIN SODIUM INJ 100 MG/1 ML DISP.SYRIN SUBCUT SCH (10:00)
[2019-02-22] MEDS ORDERED: LIDOCAINE 1% INJ-PF (10 MG/ML) 30 ML SDV ONE (10:50)
[2019-02-22] MEDS ORDERED: HEPARIN SODIUM,PORCINE/NS/PF 2,000 UNIT/1,000 ML RTUINJ IV ONE (10:50)
[2019-02-22] MEDS ORDERED: MIDAZOLAM 2 MG/2 ML INJ ONE (10:57)
[2019-02-22] MEDS ORDERED: FENTANYL CITRATE INJ/PF 100 MCG/2 ML AMPUL ONE (10:57)
[2019-02-22] MEDS ORDERED: NITROGLYCERIN/D5W 50 MG/250 ML RTUINJ IV ONE (11:03)
[2019-02-22] MEDS ORDERED: HEPARIN SOD (PORCINE) 1,000 UNIT/ML 10 ML VIAL ONE (11:06)
--- NOTE | 2019-02-22 12:48 | Operative Report ---
Operative Report DATE OF SURGERY: 02/22/19 Operative Report: Left heart catheterization with selective coronary angiography PREOPERATIVE DIAGNOSIS: Non-ST elevation myocardial infarction POSTOPERATIVE DIAGNOSIS: 1. Normal left-sided filling pressures. 2. Moderate severe luminal irregularities in the LAD. 3. No evidence of hemodynamic significant gradient aortic stenosis OPERATION: Left heart catheterization with selective coronary angiography SURGEON: RENEE POOL ANESTHESIA: Moderate Sedation TISSUE REMOVED OR ALTERED: None COMPLICATIONS: None ESTIMATED BLOOD LOSS: None PROCEDURE: Indication: Very pleasant 59-year-old female who presented as a non-ST elevation myocardial infarction. I was under the impression that she was seen by Dr. Berg in consultation. Cardiac catheterization was subsequently recommended. The patient understands with the full risks benefits and alternatives including but not limited to heart attack stroke surgery emerged surgery contrast nephropathy radiation exposure as well as need for potential emergent transfer without surgery on site they desire to proceed with diagnostic angiography and interventional therapy is indicated. Complications none Consent signed on chart Procedure patient was prepped and draped in usual sterile fashion brought to the cardiac catheterization laboratory in fasting state. Moderate conscious sedation was was performed for 30 minutes. In terms of her pressure medications at my direction and continuous hemodynamic monitoring was utilizing a standard technique the right radial artery was successfully cannulated and after 200 mcg of nitroglycerin 5000 units of heparin were administered and selective coronary geography left heart catheterization was performed with a take catheter. Hemodynamics #1 aortic pressures 108/48 with a mean of 75. LV pressure is 118/0 with an LVEDP of 6. There was no significant transaortic gradient on pullback Selective coronary angiography was performed the following findings 1. Left main is a good caliber bifurcates LAD and left circumflex and is free significant disease. To the LAD is a moderate caliber and terminates at the apex. As a pitchfork configuration. It provides a normal complement of septal perforators. It provides a very small first diagonal branch.. It has moderate to severe luminal irregularities particularly in the mid vessel. 3. The left circumflex is a large caliber vessel. Provides a large bifurcating obtuse marginal branch. There is mild luminal irregularities. In the MONT[place]GRIN cranial projection, it appears to have a high-grade ostial napkin ring stenosis. However in other images which were taken specifically to evaluate this ostial lesion, there does appear to be no evidence of significant obstructive disease at the ostium of the left circumflex. 4. The right coronary moderate in caliber and dominant and provides a smaller PDA and posterolateral system. It is mild to moderate luminal irregularities. Impression #1 normal left-sided filling pressures #2 no evidence of significant aortic stenosis #3 no evidence of significant obstructive coronary artery disease with the exception of moderate severe luminal irregularities within the mid LAD. Plan #1 maximize medical therapy. 2. Case was discussed with Dr. Mahmood who agrees to see the patient in follow-up longitudinal management 3. Case was discussed with the hospital service, Dr. Cedeño
--- NOTE | 2019-02-22 12:49 | PDOC PROGRESS REPORT ---
Subjective Progress Note for:: 02/22/19 Subjective:: HAY OLSEN is a 59 year old female with a past medical history of hypertension, diabetes medius type II, hyperlipidemia, chronic heavy cigarette smoking, history of bladder cancer and COPD not on home O2 who presented with chest pain. Overnight, patient had intermittent chest pain and her troponins also trended up to 0.5. She was started on therapeutic Lovenox. This morning, she is currently chest pain-free and denies any acute complaints. No shortness of breath. Patient will be scheduled for a cardiac cath today. Reason For Visit: CHEST PAIN Physical Exam Vital Signs: Temp Pulse Resp BP Pulse Ox 97.8 F 95 17 102/57 L 93 02/22/19 07:39 02/22/19 07:39 02/22/19 07:39 02/22/19 09:16 02/22/19 07:39 Intake & Output 02/21/19 02/22/19 02/23/19 06:59 06:59 06:59 Intake Total 1780 0 Output Total 1075 Balance 705 0 Weight 191 lb 12.835 oz General appearance: PRESENT: no acute distress, well-developed, well-nourished Head exam: PRESENT: atraumatic, normocephalic Eye exam: PRESENT: conjunctiva pink, EOMI, PERRLA. ABSENT: scleral icterus Ear exam: PRESENT: normal external ear exam Mouth exam: PRESENT: moist, tongue midline Neck exam: ABSENT: carotid bruit, JVD, lymphadenopathy, thyromegaly Respiratory exam: PRESENT: clear to auscultation eligio. ABSENT: rales, rhonchi, wheezes Cardiovascular exam: PRESENT: RRR. ABSENT: diastolic murmur, rubs, systolic murmur Pulses: PRESENT: normal dorsalis pedis pul GI/Abdominal exam: PRESENT: normal bowel sounds, soft. ABSENT: distended, guarding, mass, organolmegaly, rebound, tenderness Rectal exam: PRESENT: deferred Extremities exam: PRESENT: full ROM. ABSENT: calf tenderness, clubbing, pedal edema Neurological exam: PRESENT: alert, awake, oriented to person, oriented to place, oriented to time, oriented to situation, CN II-XII grossly intact. ABSENT: motor sensory deficit Results Laboratory Results: 02/22/19 03:51 02/22/19 03:51 02/21/19 02/21/19 02/21/19 16:39 16:39 16:39 WBC 13.1 H RBC 4.05 Hgb 11.9 L Hct 35.8 L MCV 88 MCH 29.3 MCHC 33.2 RDW 14.8 H Plt Count 281 Seg Neutrophils % 68.5 Sodium 138.3 Potassium 4.8 Chloride 101 Carbon Dioxide 28 Anion Gap 9 BUN 18 Creatinine 1.01 Est GFR ( Amer) > 60 Glucose 128 H Calcium 9.8 Total Bilirubin 0.5 AST 16 Alkaline Phosphatase 80 Total Protein 7.8 Albumin 4.0 TSH 2.28 Urine Color Urine Appearance Urine pH Ur Specific [place] Urine Protein Urine Glucose (UA) Urine Ketones Urine Blood Urine Nitrite Ur Leukocyte Esterase Urine WBC (Auto) Urine RBC (Auto) 02/22/19 02/22/19 02/22/19 03:51 03:51 06:30 WBC 10.7 H RBC 3.78 Hgb 11.0 L Hct 33.6 L MCV 89 MCH 29.1 MCHC 32.7 RDW 14.9 H Plt Count 227 Seg Neutrophils % 73.6 Sodium 140.4 Potassium 4.8 Chloride 104 Carbon Dioxide 27 Anion Gap 9 BUN 15 Creatinine 0.73 Est GFR ( Amer) > 60 Glucose 128 H Calcium 9.2 Total Bilirubin AST Alkaline Phosphatase Total Protein Albumin TSH Urine Color YELLOW Urine Appearance SLIGHTLY-CLOUDY Urine pH 6.0 Ur Specific [place] 1.013 Urine Protein NEGATIVE Urine Glucose (UA) NEGATIVE Urine Ketones NEGATIVE Urine Blood SMALL H Urine Nitrite NEGATIVE Ur Leukocyte Esterase MODERATE H Urine WBC (Auto) 50 Urine RBC (Auto) 4 02/21/19 02/21/19 02/21/19 16:39 16:39 22:23 Creatine Kinase 48 Troponin I 0.094 0.572 02/22/19 03:51 Creatine Kinase Troponin I 0.507 Impressions: Chest X-Ray 02/21/19 16:15 IMPRESSION: NO ACUTE RADIOGRAPHIC FINDING IN THE CHEST. Chest/Abdomen CTA 02/21/19 18:40 IMPRESSION: There is no aortic aneurysm or dissection. There is no pulmonary embolus. Assessment and Plan - Diagnosis (1) NSTEMI (non-ST elevated myocardial infarction) Is this a current diagnosis for this admission?: Yes Plan: Currently on Lovenox 90 mg every 12. Continue aspirin, nitro, and statin. Patient is going for cardiac cath today. (2) Atypical chest pain Is this a current diagnosis for this admission?: Yes Plan: As per #1. (3) Diabetes mellitus type 2 in obese Is this a current diagnosis for this admission?: Yes Plan: Continue sliding scale. (4) History of bladder cancer Is this a current diagnosis for this admission?: Yes Plan: In remission. (5) Hypertension Is this a current diagnosis for this admission?: Yes Plan: Continue losartan and metoprolol. (6) Tobacco abuse Is this a current diagnosis for this admission?: Yes Plan: Counseled on cessation. She is unwilling to try nicotine patches and she said that she has this is in the past and it does not work for her. - Time Time Spent with patient: 25-34 minutes
[2019-02-22] MEDS: ASPIRIN 81 MG TABLET, CHEWABLE PO SCH (13:08)
[2019-02-22] MEDS ORDERED: ACETAMINOPHEN 325 MG TABLET ONE (19:22)
[2019-02-22] MEDS ORDERED: ACETAMINOPHEN 325 MG TABLET PO PRN (19:24)
[2019-02-22 20:29] LABS: APPEARANCE,URINE CLOUDY; BILIRUBIN,URINE NEGATIVE (NEGATIVE); COLOR,URINE YELLOW; GLUCOSE, URINE NEGATIVE (NEGATIVE); KETONES,URINE NEGATIVE (NEGATIVE); LEUKOCYTE ESTERASE,URINE LARGE (NEGATIVE); NITRITE,URINE NEGATIVE (NEGATIVE); PROTEIN,URINE NEGATIVE (NEGATIVE); URINE SPECIFIC GRAVITY 1.015; UROBILINOGEN,URINE NEGATIVE mg/dL (<2.0)
[2019-02-22] MEDS: CEFTRIAXONE 1 GM/D5W RTU 1 GM/50 ML RTUPB IV SCH (21:24)
[2019-02-22] MEDS: ATORVASTATIN CALCIUM 40 MG TABLET PO SCH (21:25)
[2019-02-23] MEDS: LOSARTAN POTASSIUM 25 MG TABLET PO SCH (09:06)
[2019-02-23] MEDS: METOPROLOL TARTRATE 25 MG TABLET PO SCH ×2 (09:06→22:09)
[2019-02-23] MEDS: ASPIRIN 81 MG TABLET, CHEWABLE PO SCH (09:06)
[2019-02-23] MEDS: INSULIN LISPRO 100 UNIT/ML 3 ML VIAL SUBCUT SCH ×4 (09:06→22:04)
--- NOTE | 2019-02-23 11:10 | RADIOLOGY REPORT (SQ) ---
EXAM DESCRIPTION: CT ABD/PELVIS NO ORAL OR IV COMPLETED DATE/TIME: 02/23/2019 10:35 am REASON FOR STUDY: AB PAIN COMPARISON: CT angio chest 02/21/2019 CT chest abdomen pelvis 03/29/2018 CT abdomen pelvis 01/04/2017, 02/19/2016 TECHNIQUE: CT scan of the abdomen and pelvis performed without intravenous or oral contrast. Images reviewed with lung, soft tissue, and bone windows. Reconstructed coronal and sagittal MPR images revi ewed. All images stored on PACS. All CT scanners at this facility use dose modulation, iterative reconstruction, and/or weight based d osing when appropriate to reduce radiation dose to as low as reasonably achievable (ALARA). [facility]: Dose Right [facility]: CareDose [facility]: Dose Right [facility]: Teradose 4D [facility]: Smart [employer], [place] RADIATION DOSE: CT Rad equipment meets quality standard of care and radiation dose reduction techniq ues were employed. CTDIvol: 13.8 - 16.1 mGy. DLP: 1024 mGy-cm.mGy. LIMITATIONS: None. FINDINGS: On today's study, there is moderate to marked right hydronephrosis and hydroureter, new co mpared to the previous studies. Right distal ureteral impingement is likely at the level of the righ t lower quadrant stoma for urinary conduit, which also contains nonobstructed small bowel, ileocecal valve region, cecum, and appendix. This report was called to Dr Daniels. LOWER CHEST: No significant findings. No nodules or infiltrates. NON-CONTRASTED LIVER, SPLEEN, ADRENALS: Evaluation limited by lack of IV contrast. No identified sign ificant masses. PANCREAS: No masses. No peripancreatic inflammatory changes. GALLBLADDER: Surgically absent RIGHT KIDNEY AND URETER: As above no right-sided urinary calculi are seen. No gross right renal ma sses. LEFT KIDNEY AND URETER: No suspicious masses. Assessment limited by lack of IV contrast. No signifi cant calcifications. No hydronephrosis or hydroureter. AORTA AND RETROPERITONEUM: No aneurysm. No retroperitoneal masses or adenopathy. BOWEL AND PERITONEAL CAVITY: No CT evidence of bowel obstruction or free intraperitoneal air or fluid . 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 APPENDIX: Normal. PELVIS, BLADDER, AND ABDOMINAL WALL:Post hysterectomy. Post cystectomy. No pelvic masses or adenopa thy BONES: No significant findings. OTHER: No other significant finding. IMPRESSION: New no moderate to marked right hydronephrosis and hydroureter down to the level of the right lower quadrant stoma. Likely impinged upon by stomal hernia contents. Findings discussed with attending physician. COMMENT: Quality ID # [id number]: Final reports with documentation of one or more dose reduction techniques (e.g., Automated exposure control, adjustment of the mA and/or kV according to patient size, use of iterative reconstruction technique) TECHNICAL DOCUMENTATION: JOB ID: [id number] [employer]- All Rights Reserved Reading location - IP/workstation name: [email or web address]
[2019-02-23] MEDS: ENOXAPARIN SODIUM INJ 40 MG/0.4 ML DISP.SYRIN SUBCUT SCH (12:45)
--- NOTE | 2019-02-23 15:18 | PDOC PROGRESS REPORT ---
Subjective Progress Note for:: 02/23/19 Subjective:: HAY OLSEN is a 59 year old female with a past medical history of hypertension, diabetes medius type II, hyperlipidemia, chronic heavy cigarette smoking, history of bladder cancer and COPD not on home O2 who presented with chest pain. 02/22: Overnight, patient had intermittent chest pain and her troponins also trended up to 0.5. She was started on therapeutic Lovenox. This morning, she is currently chest pain-free and denies any acute complaints. No shortness of breath. Patient will be scheduled for a cardiac cath today. 02/23: Under went cardiac cath yesterday which was uneventful. Nonobstructive CAD. Her chest pain has resolved. No shortness of breath. She did have a low- grade temperature yesterday afternoon. She does complain of some lower abdominal discomfort this morning. She says the urine coming from her urostomy is malodorous. CT of the abdomen pelvis was pursued and revealed significant right-sided hydronephrosis likely from impingement by a stomal hernia. Will discuss with her urologist at [facility] for further recommendations. Reason For Visit: CHEST PAIN Physical Exam Vital Signs: Temp Pulse Resp BP Pulse Ox 98.3 F 92 18 108/61 95 02/23/19 11:27 02/23/19 13:38 02/23/19 13:00 02/23/19 11:27 02/23/19 13:00 Intake & Output 02/22/19 02/23/19 02/24/19 06:59 06:59 06:59 Intake Total 1780 930 120 Output Total 1075 875 Balance 705 55 120 Weight 191 lb 12.835 oz 196 lb 3.382 oz General appearance: PRESENT: no acute distress, well-developed, well-nourished Head exam: PRESENT: atraumatic, normocephalic Eye exam: PRESENT: conjunctiva pink, EOMI, PERRLA. ABSENT: scleral icterus Ear exam: PRESENT: normal external ear exam Mouth exam: PRESENT: moist, tongue midline Neck exam: ABSENT: carotid bruit, JVD, lymphadenopathy, thyromegaly Respiratory exam: PRESENT: clear to auscultation eligio. ABSENT: rales, rhonchi, wheezes Cardiovascular exam: PRESENT: RRR. ABSENT: diastolic murmur, rubs, systolic murmur Pulses: PRESENT: normal dorsalis pedis pul GI/Abdominal exam: PRESENT: normal bowel sounds, soft. ABSENT: distended, guarding, mass, organolmegaly, rebound, tenderness Rectal exam: PRESENT: deferred Neurological exam: PRESENT: alert, awake, oriented to person, oriented to place, oriented to time, oriented to situation, CN II-XII grossly intact. ABSENT: motor sensory deficit Results Laboratory Results: 02/22/19 03:51 02/22/19 03:51 02/22/19 02/22/19 20:00 20:10 Lactic Acid 1.6 Urine Color YELLOW Urine Appearance CLOUDY Urine pH 6.0 Ur Specific [place] 1.015 Urine Protein NEGATIVE Urine Glucose (UA) NEGATIVE Urine Ketones NEGATIVE Urine Blood SMALL H Urine Nitrite NEGATIVE Ur Leukocyte Esterase LARGE H Urine WBC (Auto) 134 Urine RBC (Auto) 7 02/21/19 02/21/19 02/21/19 16:39 16:39 22:23 Creatine Kinase 48 Troponin I 0.094 0.572 02/22/19 03:51 Creatine Kinase Troponin I 0.507 Impressions: Chest X-Ray 02/21/19 16:15 IMPRESSION: NO ACUTE RADIOGRAPHIC FINDING IN THE CHEST. Chest/Abdomen CTA 02/21/19 18:40 IMPRESSION: There is no aortic aneurysm or dissection. There is no pulmonary embolus. Abdomen/Pelvis CT 02/23/19 00:00 IMPRESSION: New no moderate to marked right hydronephrosis and hydroureter down to the level of the right lower quadrant stoma. Likely impinged upon by stomal hernia contents. Findings discussed with attending physician. Assessment and Plan - Diagnosis (1) NSTEMI (non-ST elevated myocardial infarction) Is this a current diagnosis for this admission?: Yes Plan: 02/22: Currently on Lovenox 90 mg every 12. Continue aspirin, nitro, and statin. Patient is going for cardiac cath today. 02/23:. S/P cardiac cath showed nonobstructive [id number] CAD. Recommendation is to optimize medical therapy. Will switch Lovenox to prophylactic dosing today. (2) Hydronephrosis Is this a current diagnosis for this admission?: Yes Plan: CT of the abdomen pelvis was pursued and revealed significant right-sided hydronephrosis likely from impingement by a stomal hernia. Will discuss with her urologist at [facility] for further recommendations. (3) Atypical chest pain Is this a current diagnosis for this admission?: Yes Plan: As per #1. Resolved. (4) Diabetes mellitus type 2 in obese Is this a current diagnosis for this admission?: Yes Plan: Continue sliding scale. (5) History of bladder cancer Is this a current diagnosis for this admission?: Yes Plan: In remission. (6) Hypertension Is this a current diagnosis for this admission?: Yes Plan: Continue losartan and metoprolol. (7) Tobacco abuse Is this a current diagnosis for this admission?: Yes Plan: Counseled on cessation. She is unwilling to try nicotine patches and she said that she has this is in the past and it does not work for her. (8) Complicated UTI (urinary tract infection) Is this a current diagnosis for this admission?: Yes Plan: Started on Rocephin. Urine culture pending.
[2019-02-23 16:02] LABS: ANION GAP 11 (5-19); BLOOD UREA NITROGEN 18 mg/dL (7-20); CALCIUM 8.8 mg/dL (8.4-10.2); CARBON DIOXIDE 30 mmol/L (22-30); CHLORIDE 97 mmol/L (98-107); GLUCOSE 113 mg/dL (75-110); POTASSIUM 4.4 mmol/L (3.6-5.0)
[2019-02-23] MEDS ORDERED: ENOXAPARIN SODIUM INJ 100 MG/1 ML DISP.SYRIN SUBCUT SCH (22:00)
[2019-02-23] MEDS: ATORVASTATIN CALCIUM 40 MG TABLET PO SCH (22:09)
[2019-02-23] MEDS: CEFTRIAXONE 1 GM/D5W RTU 1 GM/50 ML RTUPB IV SCH (22:22)
[2019-02-24 06:30] LABS: HEMATOCRIT 30.4 % (36.0-47.0); MEAN CORPUSCULAR HEMOGLOBIN 29.2 pg (27.0-33.4); MEAN CORPUSCULAR VOLUME 88 fl (80-97); PLATELET COUNT 214 10^3/uL (150-450); RED BLOOD COUNT 3.44 10^6/uL (3.72-5.28); RED CELL DISTRIBUTION WIDTH 14.7 % (11.5-14.0); WHITE BLOOD COUNT 11.1 10^3/uL (4.0-10.5)
[2019-02-24] MEDS: INSULIN LISPRO 100 UNIT/ML 3 ML VIAL SUBCUT SCH ×4 (08:02→22:29)
[2019-02-24] MEDS: LOSARTAN POTASSIUM 25 MG TABLET PO SCH (10:14)
[2019-02-24] MEDS: ASPIRIN 81 MG TABLET, CHEWABLE PO SCH (10:17)
[2019-02-24] MEDS: METOPROLOL TARTRATE 25 MG TABLET PO SCH ×2 (10:17→22:30)
[2019-02-24] MEDS: ENOXAPARIN SODIUM INJ 40 MG/0.4 ML DISP.SYRIN SUBCUT SCH (10:20)
[2019-02-24 11:32] LABS: ABSOLUTE BASOPHILS # (AUTO) 0.1 10^3/uL (0.0-0.2); ABSOLUTE EOSINOPHILS # (AUTO) 0.1 10^3/uL (0.0-0.6); ABSOLUTE MONOCYTES (AUTO) 0.7 10^3/uL (0.1-1.4); ABSOLUTE NEUT (AUTO) 6.8 10^3/uL (1.7-8.2); BASOPHILS % (AUTO) 1.1 % (0-2); EOSINOPHILS % (AUTO) 0.7 % (0-6); HEMATOCRIT 30.6 % (36.0-47.0); HEMOGLOBIN 10.2 g/dL (12.0-15.5); LYMPHOCYTES % (AUTO) 20.9 % (13-45); MEAN CORPUSCULAR HEMOGLOBIN 29.4 pg (27.0-33.4); MEAN CORPUSCULAR HGB CONC 33.4 g/dL (32.0-36.0); MEAN CORPUSCULAR VOLUME 88 fl (80-97); MONOCYTES % (AUTO) 7.4 % (3-13); PLATELET COUNT 223 10^3/uL (150-450); RED BLOOD COUNT 3.48 10^6/uL (3.72-5.28); RED CELL DISTRIBUTION WIDTH 14.6 % (11.5-14.0); SEGMENTED NEUTROPHILS % (AUTO) 69.9 % (42-78); TOTAL CELLS COUNTED % (AUTO) 100 %; WHITE BLOOD COUNT 9.7 10^3/uL (4.0-10.5)
[2019-02-24 11:46] LABS: ANION GAP 9 (5-19); BLOOD UREA NITROGEN 16 mg/dL (7-20); CARBON DIOXIDE 28 mmol/L (22-30); CHLORIDE 98 mmol/L (98-107); GLUCOSE 158 mg/dL (75-110); POTASSIUM 4.2 mmol/L (3.6-5.0)
--- NOTE | 2019-02-24 16:47 | PDOC PROGRESS REPORT ---
Subjective Progress Note for:: 02/24/19 Subjective:: HAY OLSEN is a 59 year old female with a past medical history of hypertension, diabetes medius type II, hyperlipidemia, chronic heavy cigarette smoking, history of bladder cancer and COPD not on home O2 who presented with chest pain. 02/22: Overnight, patient had intermittent chest pain and her troponins also trended up to 0.5. She was started on therapeutic Lovenox. This morning, she is currently chest pain-free and denies any acute complaints. No shortness of breath. Patient will be scheduled for a cardiac cath today. 02/23: She underwent cardiac cath yesterday which was uneventful and showed non- obstructive CAD. Her chest pain has resolved. No shortness of breath. She did have a low-grade temperature yesterday afternoon. She does complain of some lower abdominal discomfort this morning. She says the urine coming from her urostomy is malodorous. CT of the abdomen pelvis was pursued and revealed significant right-sided hydronephrosis likely from impingement by a stomal hernia. Will discuss with her urologist at [facility] for further recommendations. 02/24: No acute event overnight. She denies acute complaints. No fever or chills. Urine culture is initially growing at [facility] an GNR. Discussed case in length with [facility] urology, Dr. Brizuela. As obstruction is unilateral and her renal functions are normal and she is not septic, she recommends possible nephrostomy tube placement upon outpatient follow-up with them. Patient is making adequate urine. Reason For Visit: CHEST PAIN, UTI COMPLICATED BY HYDRONEPHROSIS Physical Exam Vital Signs: Temp Pulse Resp BP Pulse Ox 97.9 F 76 16 105/44 L 95 02/24/19 13:00 02/24/19 13:00 02/24/19 13:00 02/24/19 13:00 02/24/19 13:00 Intake & Output 02/23/19 02/24/19 02/25/19 06:59 06:59 06:59 Intake Total 930 620 50 Output Total 875 Balance 55 620 50 Weight 196 lb 3.382 oz 204 lb 2.369 oz General appearance: PRESENT: no acute distress, well-developed, well-nourished Head exam: PRESENT: atraumatic, normocephalic Eye exam: PRESENT: conjunctiva pink, EOMI, PERRLA. ABSENT: scleral icterus Ear exam: PRESENT: normal external ear exam Mouth exam: PRESENT: moist, tongue midline Neck exam: ABSENT: carotid bruit, JVD, lymphadenopathy, thyromegaly Respiratory exam: PRESENT: clear to auscultation eligio. ABSENT: rales, rhonchi, wheezes Cardiovascular exam: PRESENT: RRR. ABSENT: diastolic murmur, rubs, systolic murmur Pulses: PRESENT: normal dorsalis pedis pul GI/Abdominal exam: PRESENT: normal bowel sounds, soft. ABSENT: distended, guarding, mass, organolmegaly, rebound, tenderness Rectal exam: PRESENT: deferred Extremities exam: PRESENT: full ROM. ABSENT: calf tenderness, clubbing, pedal edema Neurological exam: PRESENT: alert, awake, oriented to person, oriented to place, oriented to time, oriented to situation, CN II-XII grossly intact. ABSENT: motor sensory deficit Results Laboratory Results: 02/24/19 10:42 02/24/19 10:42 02/24/19 02/24/19 02/24/19 05:21 10:42 10:42 WBC 11.1 H 9.7 RBC 3.44 L 3.48 L Hgb 10.0 L 10.2 L Hct 30.4 L 30.6 L MCV 88 88 MCH 29.2 29.4 MCHC 33.0 33.4 RDW 14.7 H 14.6 H Plt Count 214 223 Seg Neutrophils % 69.9 Sodium 135.4 L Potassium 4.2 Chloride 98 Carbon Dioxide 28 Anion Gap 9 BUN 16 Creatinine 0.74 Est GFR ( Amer) > 60 Glucose 158 H Calcium 9.0 02/21/19 02/21/19 02/21/19 16:39 16:39 22:23 Creatine Kinase 48 Troponin I 0.094 0.572 02/22/19 03:51 Creatine Kinase Troponin I 0.507 Impressions: Chest X-Ray 02/21/19 16:15 IMPRESSION: NO ACUTE RADIOGRAPHIC FINDING IN THE CHEST. Chest/Abdomen CTA 02/21/19 18:40 IMPRESSION: There is no aortic aneurysm or dissection. There is no pulmonary embolus. Abdomen/Pelvis CT 02/23/19 00:00 IMPRESSION: New no moderate to marked right hydronephrosis and hydroureter down to the level of the right lower quadrant stoma. Likely impinged upon by stomal hernia contents. Findings discussed with attending physician. Assessment and Plan - Diagnosis (1) NSTEMI (non-ST elevated myocardial infarction) Is this a current diagnosis for this admission?: Yes Plan: 02/22: Currently on Lovenox 90 mg every 12. Continue aspirin, nitro, and statin. Patient is going for cardiac cath today. 02/23: S/P cardiac cath showed nonobstructive [id number] CAD. Recommendation is to optimize medical therapy. Will switch Lovenox to prophylactic dosing today. 02/24: Stable. Add Plavix. (2) Hydronephrosis Is this a current diagnosis for this admission?: Yes Plan: 02/23: CT of the abdomen pelvis was pursued and revealed significant right-sided hydronephrosis likely from impingement by a stomal hernia. Will discuss with her urologist at [facility] for further recommendations. 02/24: Discussed case in length with [facility] urology, Dr. Brizuela. As obstruction is unilateral and her renal functions are normal and she is not septic, she recommends possible nephrostomy tube placement upon outpatient follow-up with them. Patient is making adequate urine. (3) Atypical chest pain Is this a current diagnosis for this admission?: Yes Plan: As per #1. Resolved. (4) Diabetes mellitus type 2 in obese Is this a current diagnosis for this admission?: Yes Plan: Continue sliding scale. (5) History of bladder cancer Is this a current diagnosis for this admission?: Yes Plan: In remission. (6) Hypertension Is this a current diagnosis for this admission?: Yes Plan: Continue losartan and metoprolol. 02/24: Switch losartan to low dose lisinopril. (7) Tobacco abuse Is this a current diagnosis for this admission?: Yes Plan: Counseled on cessation. She is unwilling to try nicotine patches and she said that she has this is in the past and it does not work for her. (8) Complicated UTI (urinary tract infection) Is this a current diagnosis for this admission?: Yes Plan: Urine culture is initially growing at [facility] an GNR. Continue Rocephin.
[2019-02-24] MEDS: ATORVASTATIN CALCIUM 40 MG TABLET PO SCH (22:07)
[2019-02-24] MEDS: CEFTRIAXONE 1 GM/D5W RTU 1 GM/50 ML RTUPB IV SCH (22:12)
[2019-02-25] MEDS: INSULIN LISPRO 100 UNIT/ML 3 ML VIAL SUBCUT SCH ×2 (08:18→12:29)
[2019-02-25 08:39] LABS: APPEARANCE,URINE CLEAR; BILIRUBIN,URINE NEGATIVE (NEGATIVE); COLOR,URINE YELLOW; GLUCOSE, URINE NEGATIVE (NEGATIVE); KETONES,URINE NEGATIVE (NEGATIVE); LEUKOCYTE ESTERASE,URINE TRACE (NEGATIVE); NITRITE,URINE NEGATIVE (NEGATIVE); PROTEIN,URINE NEGATIVE (NEGATIVE); UROBILINOGEN,URINE NEGATIVE mg/dL (<2.0)
[2019-02-25] MEDS ORDERED: LISINOPRIL 5 MG TABLET PO SCH (10:00)
[2019-02-25] MEDS: METOPROLOL TARTRATE 25 MG TABLET PO SCH (10:43)
[2019-02-25] MEDS: ASPIRIN 81 MG TABLET, CHEWABLE PO SCH (10:43)
[2019-02-25] MEDS: ENOXAPARIN SODIUM INJ 40 MG/0.4 ML DISP.SYRIN SUBCUT SCH (10:43)
[2019-02-25 14:48] VITALS: BP 117/60
--- NOTE | 2019-02-25 18:37 | PDOC DISCHARGE SUMMARY ---
General - Admit/Disc Date/PCP Admission Date/Primary Care Provider: 02/23/19 17:16 EVAN DAVIS NP Discharge Date: 02/25/19 - Discharge Diagnosis (1) NSTEMI (non-ST elevated myocardial infarction) Is this a current diagnosis for this admission?: Yes (2) Hydronephrosis Is this a current diagnosis for this admission?: Yes (3) Atypical chest pain Is this a current diagnosis for this admission?: Yes (4) Diabetes mellitus type 2 in obese Is this a current diagnosis for this admission?: Yes (5) History of bladder cancer Is this a current diagnosis for this admission?: Yes (6) Hypertension Is this a current diagnosis for this admission?: Yes (7) Tobacco abuse Is this a current diagnosis for this admission?: Yes (8) Complicated UTI (urinary tract infection) Is this a current diagnosis for this admission?: Yes - Additional Information Resuscitation Status: Full Code Discharge Diet: Cardiac, Diabetic Discharge Activity: Activity As Tolerated, Balance Activity w/Rest Prescriptions: Ciprofloxacin HCl [Cipro 500 mg Tablet] 500 mg PO BID 7 Days #14 tablet Atorvastatin Calcium [Lipitor 40 mg Tablet] 40 mg PO QHS #30 tab Metoprolol Tartrate [Lopressor 25 mg Tablet] 12.5 mg PO Q12 #60 tablet Clopidogrel Bisulfate [Plavix 75 mg Tablet] 75 mg PO DAILY #30 tablet Lisinopril [Prinivil 5 mg Tablet] 5 mg PO DAILY #30 tablet Home Medications: Albuterol Sulfate [Proair HFA Inhalation Aerosol 8.5 gm MDI] 1 puff IH ASDIR PRN 02/21/19 Aspirin [Adult Low Dose Aspirin EC] 81 mg PO QHS 02/21/19 Cetirizine HCl [Zyrtec 10 mg Tablet] 10 mg PO DAILY 02/21/19 Cholecalciferol (Vitamin D3) [Vitamin D3 2000 unit Tablet] 2,000 unit PO QHS 02/21/19 Cyanocobalamin (Vitamin B-12) [Vitamin B-12] 1,000 mcg PO DAILY 02/21/19 Dexlansoprazole [Dexilant 60 mg Capsule] 60 mg PO DAILY 02/21/19 Sitagliptin Phos/Metformin HCl [Janumet Xr 100-1,000 mg Tablet] 1 each PO QHS 02/21/19 Atorvastatin Calcium [Lipitor 40 mg Tablet] 40 mg PO QHS #30 tab 02/25/19 Ciprofloxacin HCl [Cipro 500 mg Tablet] 500 mg PO BID 7 Days #14 tablet 02/25/19 Clopidogrel Bisulfate [Plavix 75 mg Tablet] 75 mg PO DAILY #30 tablet 02/25/19 Lisinopril [Prinivil 5 mg Tablet] 5 mg PO DAILY #30 tablet 02/25/19 Metoprolol Tartrate [Lopressor 25 mg Tablet] 12.5 mg PO Q12 #60 tablet 02/25/19 History of Present Illness History of Present Illness: HAY OLSEN is a 59 year old female with a past medical history of hypertension, diabetes medius type II, hyperlipidemia, chronic heavy cigarette smoking, history of bladder cancer and COPD not on home O2 who presented with chest pain. 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 She said the pain was a combination of pressure-like and sharp in character, 5/10 intensity. She says that it did temporarily radiated through the intrascapular region. She denies shortness of breath. She was given nitro in the ER and had decent relief from the nitro. Upon encounter, she appears comfortable. She says her chest pain is minimal at 1/10 at the moment. She is saturating at 91 to 92% on room air. She says that she was supposed to be on home oxygen but she refused as she decided to continue smoking. Hospital Course Hospital Course: HAY OLSEN is a 59 year old female with a past medical history of hypertension, diabetes medius type II, hyperlipidemia, chronic heavy cigarette smoking, history of bladder cancer and COPD not on home O2 who presented with chest pain. Her troponins did trend up she was started on therapeutic Lovenox. Because of multiple CAD risk factors, stress testing was deferred and she eventually underwent cardiac cath which showed nonobstructive [id number] CAD (see cath report). Her chest pain has resolved. She complained of some lower abdominal discomfort this morning. She says the urine coming from her urostomy is malodorous. UA did show UTI. CT of the abdomen pelvis was pursued and revealed significant right-sided hydronephrosis likely from impingement by a stomal hernia. She follows up with [facility] urology for her prior maxine CA. Discussed case in length with [facility] urology, Dr. Brizuela. As obstruction is unilateral and her renal functions are normal and she is not septic, she recommends possible nephrostomy tube placement upon outpatient follow-up with them. Patient is making adequate urine. Plavix was added to her regimen. He will be discharged on beta-perla and TESSIE inhibitors. She will follow-up with [facility] urology next week for possible nephrostomy tube placement. She will be discharged on oral ciprofloxacin for her UTI. Physical Exam Vital Signs: Temp Pulse Resp BP Pulse Ox 98.1 F 82 14 112/66 93 02/25/19 14:14 02/25/19 14:14 02/25/19 14:14 02/25/19 14:14 02/25/19 14:14 Intake & Output 02/24/19 02/25/19 02/26/19 06:59 06:59 06:59 Intake Total 620 850 530 Balance 620 850 530 Weight 204 lb 2.369 oz 208 lb 15.971 oz General appearance: PRESENT: no acute distress, well-developed, well-nourished Head exam: PRESENT: atraumatic, normocephalic Eye exam: PRESENT: conjunctiva pink, EOMI, PERRLA. ABSENT: scleral icterus Ear exam: PRESENT: normal external ear exam Mouth exam: PRESENT: moist, tongue midline Neck exam: ABSENT: carotid bruit, JVD, lymphadenopathy, thyromegaly Respiratory exam: PRESENT: clear to auscultation eligio. ABSENT: rales, rhonchi, wheezes Cardiovascular exam: PRESENT: RRR. ABSENT: diastolic murmur, rubs, systolic murmur Pulses: PRESENT: normal dorsalis pedis pul GI/Abdominal exam: PRESENT: normal bowel sounds, soft. ABSENT: distended, guarding, mass, organolmegaly, rebound, tenderness Rectal exam: PRESENT: deferred Extremities exam: PRESENT: full ROM. ABSENT: calf tenderness, clubbing, pedal edema Results Laboratory Results: 02/24/19 10:42 02/24/19 10:42 02/25/19 06:49 Urine Color YELLOW Urine Appearance CLEAR Urine pH 7.0 Ur Specific [place] 1.010 Urine Protein NEGATIVE Urine Glucose (UA) NEGATIVE Urine Ketones NEGATIVE Urine Blood NEGATIVE Urine Nitrite NEGATIVE Ur Leukocyte Esterase TRACE H Urine WBC (Auto) 8 Urine RBC (Auto) 3 02/21/19 02/21/19 02/21/19 16:39 16:39 22:23 Creatine Kinase 48 Troponin I 0.094 0.572 02/22/19 03:51 Creatine Kinase Troponin I 0.507 Impressions: Chest X-Ray 02/21/19 16:15 IMPRESSION: NO ACUTE RADIOGRAPHIC FINDING IN THE CHEST. Chest/Abdomen CTA 02/21/19 18:40 IMPRESSION: There is no aortic aneurysm or dissection. There is no pulmonary embolus. Abdomen/Pelvis CT 02/23/19 00:00 IMPRESSION: New no moderate to marked right hydronephrosis and hydroureter down to the level of the right lower quadrant stoma. Likely impinged upon by stomal hernia contents. Findings discussed with attending physician. Qualifiers - * PATIENT BEING DISCHARGED WITH ANY OF THE FOLLOWING DIAGNOSIS: No Acute Heart Failure - Is this a Heart Failure Patient?: No
== END 2019-02-25 15:45 | disposition home or self-care (01) | DRG 281 ==
LOC: ER 14:49 → OBSVTOIN 18:23 → INTOOBSV 18:23 → EH 18:23 → 4W 21:19 → OBSVTOIN 02-23 17:16 → 3N 02-24 19:33
PROVIDERS: ADMIT Internal Medicine; ATTEND Internal Medicine
PROC: 4A023N7 Measurement of Cardiac Sampling and Pressure, Left Heart, Percutaneous Approach (ICD-10-PCS; principal; 2019-02-22)
PROC: B201YZZ Plain Radiography of Multiple Coronary Arteries using Other Contrast (ICD-10-PCS; 2019-02-22)
DX: I21.4 Non-ST elevation (NSTEMI) myocardial infarction (principal); N13.30 Unspecified hydronephrosis; N39.0 Urinary tract infection, site not specified; I10 Essential (primary) hypertension; E78.5 Hyperlipidemia, unspecified; J44.9 Chronic obstructive pulmonary disease, unspecified; E66.9 Obesity, unspecified; F17.210 Nicotine dependence, cigarettes, uncomplicated; Z85.51 Personal history of malignant neoplasm of bladder
CPT/HCPCS: 36415; 71045; 71275; 74176; 80048; 80053; 81001; 82272; 82550; 82570; 82962; 83036; 83605; 84443; 84484; 85025; 85027; 87040; 87086; 87088; 87186; 93005; 93010; 93458; 94640; 99285; J0696; J1644; J1650; J1815; J2250; J3010; J3490; J7030; J7620